=== PATIENT | female | born 1995 | race Caucasian/White ===

== ENCOUNTER 2019-10-01 05:58 | Inpatient (IN) | payer OTHER, SELFPAY ==
[2019-10-01] VITALS (61 sets, daily range): BP systolic 46–217; BP diastolic 34–181; PULSE 55–169; RESP 15–18; TEMP 36.1–37.2; O2SAT 98–100; BMI 39.5
[2019-10-01 07:03] LABS: Basophils Absolute Auto 0.1 K/mm3 (0.0-0.1); Basophils Percent Auto 0.6 % (0.2-1.2); Eosinophils Absolute Auto 0.3 K/mm3 (0-0.3); Eosinophils Percent Auto 2.4 % (0-4.4); Hematocrit 32.1 % (37.0-47.0); Hemoglobin 9.8 g/dL (12.0-15.0); Immature Granulocyte Absolute 0.07 K/mm3 (0.00-0.031); Immature Granulocyte Percent A 0.6 % (0-0.5); Lymphocytes Absolute Auto 2.63 K/mm3 (0.9-3.2); Lymphocytes Percent Auto 22.7 % (18.3-44.2); Mean Corpuscular HGB Conc 30.5 g/dl (32-36); Mean Corpuscular Hemoglobin 22.8 pg (26-34); Mean Corpuscular Volume 74.8 fl (80-100); Mean Platelet Volume 10.2 fl (7.4-10.4); Monocytes Absolute Auto 0.6 K/mm3 (0.1-0.6); Monocytes Percent Auto 5.3 % (2.6-8.5); Neutrophils Absolute Auto 7.9 K/mm3 (1.3-6.7); Neutrophils Percent Auto 68.4 % (45.5-73.1); Nucleated Red Blood Cells Perc 0.2 % (0.0-0.2); Platelet Count Result 264 k/mm3 (150-375); Red Blood Count 4.29 M/mm3 (4.2-5.4); Red Cell Distribution Width 18.1 % (11.5-14.5); White Blood Count 11.6 K/mm3 (4.5-10.0)
[2019-10-01] MEDS: LACTATED RINGERS 1,000 ML 125 ML IV CONT ×2 (07:32→10:10)
[2019-10-01] MEDS: OXYTOCIN 30 UNITS/NS 500 ML 30 UNITS/500 ML BAG IV CONT (07:36)
--- NOTE | 2019-10-01 07:59 | WPDOBADMIT ---
Obstetrics - Admit Note Admission Note: 24 y/o @ 39 weeks here for elective induction of labor. has been complicated by possible LGA. Pt had repeat glucose testing which was normal and repeat growth u/s last week showing growth in the 80%. VSS Contractions irregular FHR category 1 Cervix 3/50/-2 AROM small amount of clear odorless fluid Epidural as desired Anticipate record reviewed. No pertinent additions to the history and/or any subsequent changes in the physical findings that are not consistent with the expected course of the were found. Additions to the history and/or subsequent changes in the physical findings follow. None.
--- NOTE | 2019-10-01 08:06 | LDADM ---
This patient, Mariya Obrien, was admitted to Labor/Delivery/Recovery 105 on 10/01/19 at 05:58. Plans for labor, pain management and were discussed with patient. Patient/family oriented to hospital policies and general routines including ID bracelet, bed and alarms, visiting hours, pain management, procedures, bathroom and other care routines, personal items, smoking policy, room service/diet and guest tray routines, security routines, and visiting hours. Patient/Family are encouraged to report perceived risks to care and to ask questions if they do not understand what they are told or what they should do. See OBIX for further documentation.
--- NOTE | 2019-10-01 09:26 | WPDANESEPP ---
Anes - Eval Pre Procedure Procedure: Labor epidural Operation Date: 10/02/19 08:30 Proposed Procedures p Post- Tubal Ligation with Cautery - Anjelica White MD Date/Time: 10/01/19 09:26 Surgeon: Christopher Preop Diagnosis: Abd pain with contractions Pre Op Diagnosis: MIL Patient Data Age: 24 Gender: F Height: 5 ft 4 in Weight: 104.55 kg Last Vital Signs Temp 97.9 F 10/01/19 06:37 Pulse 76 10/01/19 09:03 BP 140/72 10/01/19 09:03 Allergies Allergy/AdvReac Type Severity Reaction Status Date / Time No Known Allergies Allergy Unverified 04/06/16 15:33 Home Medications Medication Instructions Recorded Confirmed Type No Home Medications 10/01/19 10/01/19 History Laboratory Tests 10/01/19 10/01/19 10/01/19 06:39 06:39 06:39 WBC 11.6 K/mm3 H K/mm3 (4.5-10.0) RBC 4.29 M/mm3 M/mm3 (4.2-5.4) Hgb 9.8 g/dL L g/dL (12.0-15.0) Hct 32.1 % L % (37.0-47.0) MCV 74.8 fl L fl (80-100) MCH 22.8 pg L pg (26-34) MCHC 30.5 g/dl L g/dl (32-36) RDW 18.1 % H % (11.5-14.5) Plt Count 264 k/mm3 k/mm3 (150-375) MPV 10.2 fl fl (7.4-10.4) Immature Gran % (Auto) 0.6 % H % (0-0.5) Neut % (Auto) 68.4 % % (45.5-73.1) Lymph % (Auto) 22.7 % % (18.3-44.2) [place] % (Auto) 5.3 % % (2.6-8.5) Eos % (Auto) 2.4 % % (0-4.4) Baso % (Auto) 0.6 % % (0.2-1.2) Lymph # (Auto) 2.63 K/mm3 K/mm3 (0.9-3.2) [place] # (Auto) 0.6 K/mm3 K/mm3 (0.1-0.6) Eos # (Auto) 0.3 K/mm3 K/mm3 (0-0.3) Baso # (Auto) 0.1 K/mm3 K/mm3 (0.0-0.1) Abs Immat Gran (auto) 0.07 K/mm3 H K/mm3 (0.00-0.031) Absolute Neuts (auto) 7.9 K/mm3 H K/mm3 (1.3-6.7) Absolute Nucleated RBC 0.0 K/mm3 K/mm3 (0.0-0.012) Nucleated RBC % 0.2 % % (0.0-0.2) RPR Pending Blood Type AB Positive Antibody Screen Negative Patient hx anesthesia problems: none Family hx anesthesia problems: none PMFSH Past Medical History Medical History Obesity Family History Family History Father Acute myocardial infarction Social History Social History Smoking status: Never smoker Second hand tobacco smoke exposure: Yes Substance use: unknown Spiritual care concerns: No Exam Day of Procedure 10/01/19 09:26 Patient weight: obese Airway: Mallampati scale class II Neurological: alert and oriented
[2019-10-01 10:54] LABS: Rapid Plasma Reagin Non-Reactive (NonReactive)
--- NOTE | 2019-10-01 14:04 | PM.OBPRVD ---
OB - Delivery Note Procedure Delivery date: 10/01/19 Procedure: Procedures Operation Date: 10/02/19 08:30 <No data on this case meets the specified criteria> Intrapartal events: None Induction method: per pitocin protocol Delivery monitor: external FHT and internal uterine Route of delivery: Episiotomy description: None Laceration description: None Anesthesia type: Epidural [place] Baby Date of : 10/01/19 Time of : 13:40 Weeks of gestation at delivery: 39 Weight (pounds): 8 Weight (ounces): 3 presentation: vertex position: Right Occiput Anterior Placenta delivery description: Spontaneous cord vessel description: 3 Vessels, Nuchal Cord (x2), Loose and Reduced score one minute: 8 score five minutes: 9 Narrative: Mother and baby in stable condition. Cord clamped and cut at 2 minutes. Cord gasses collected without difficulty and handed off to staff.
--- NOTE | 2019-10-01 16:17 | PC.NURSE ---
Patient transferred to post room # 292. Support person present. Oriented to unit, room, information board, rooming in, admission packet and security measures. Patient verbalizes understanding.
[2019-10-01] MEDS: DOCUSATE SODIUM 100 MG CAPSULE PO (16:44)
[2019-10-01] MEDS: POLYSACCHARIDE IRON COMPLEX 150 MG CAPSULE PO (16:44)
[2019-10-01] MEDS: ACETAMINOPHEN 325 MG TABLET 650 MG PO (16:45)
[2019-10-01] MEDS: IBUPROFEN 600 MG TABLET PO (16:45)
[2019-10-02] VITALS (11 sets, daily range): BP systolic 94–149; BP diastolic 45–89; PULSE 58–103; RESP 12–18; TEMP 36.4–37.1; O2SAT 97–100
[2019-10-02] MEDS: IBUPROFEN 600 MG TABLET PO (04:50)
[2019-10-02 07:11] LABS: Hematocrit 34.6 % (37.0-47.0); Hemoglobin 10.4 g/dL (12.0-15.0)
[2019-10-02] MEDS: LACTATED RINGERS 1,000 ML 30 ML IV CONT (07:20)
--- NOTE | 2019-10-02 07:23 | SUR.PREOP ---
Epidural catheter in place prior to coming to preop.
--- NOTE | 2019-10-02 07:37 | WPDANESEFPP ---
Anes - Eval Final PreProcedure Day of Procedure 10/02/19 07:37 Patient weight: obese Heart: regular rate and rhythm Lungs: clear to auscultation Airway: Mallampati scale class II Neurological: alert and oriented Last oral intake: >/= 8 hours ASA classification: II Emergent: no Anesthetic plan: proceed Anesthesia type and monitoring: regional epidural and standard monitoring Informed Consent: The patient's anesthetic plan and its attendant risks and benefits were discussed with the patient/family/POA. Questions were solicited and answers provided to the satisfaction of the patient/family/POA.
--- NOTE | 2019-10-02 08:47 | WPDANLDPN2 ---
Anes-Prog Note L&D Date/Time: 10/02/19 08:47 Comfortable throughout: labor and delivery Neuraxial method: epidural Epidural/Spinal procedure site: clean & non-tender Neuro status: Neuro function grossly intact. Cardiovascular status: normal Respiratory status: normal Airway patency: baseline Mental status: baseline Post-Op hydration status: normal Vital Signs: Last Vital Signs Temp 37.1 C 10/02/19 07:17 Pulse 61 10/02/19 07:17 Resp 16 10/02/19 07:17 BP 112/62 10/02/19 07:17 Pulse Ox 99 10/02/19 07:17 Post-procedural complaints: none Patient feedback: Patient satisfied with anesthetic care.
--- NOTE | 2019-10-02 08:50 | P.OP_ITS ---
Procedure Note - Detailed Date of procedure: 10/02/19 Pre-op diagnosis: MIL Unwanted fertility, term delivered Post-op diagnosis: same Procedure performed: tubal ligation Description of procedure: The patient was taken to the operating room. She was prepped and draped in the dorsal spine position. A curvilinear infraumbilical incision was made with the scalpel. The fascia superiorly inferiorly was grasped with Allis clamps. The fascia was transected Metzenbaum scissors. The preperitoneal fat was dissected bluntly the peritoneal cavity was entered bluntly. The fascial incision was extended laterally with Metzenbaum scissors. The fallopian tubes was palpated and dressed. It was brought to the abdominal incision. It was grasped with a Baylis clamp. This was in the ampullary regio n and a window was made in the broad ligament with cautery. The proximal distal ends of the skeletonized tube were ligated with Vicryl. Segment of ligated tube was resected with Metzenbaum scissors. The proximal distal ends of the tube were cauterized. When the tube was hemostatic that was lab to fall back into the abdomen. The tube on the contralateral side was ligated in identical fashion. The fascia was closed with an 0 Vicryl running fashion. Subcutaneous tissue was irrigated. Blood. The cauterized. Skin was closed subcuticular 4 Monocryl. It was covered with Dermabond. Sponge lap and needle counts were correct. The patient was taken the recovery room stable condition. Anesthesia: GETA Surgeon: Anjelica White MD Estimated blood loss (mL): 2 Drains: No Packing: No Pathology: yes Complications: No immediate complications Condition: stable Disposition: floor Findings: Normal appearing maternal anatomy
[2019-10-02] MEDS: ACETAMINOPHEN 325 MG TABLET 650 MG PO (09:42)
--- NOTE | 2019-10-02 09:45 | PC.NURSE ---
She from post op called to give report on pt. Pt did receive some IV sedation medication, no pain meds and is able to move lower extremities. Pts vitals at time of report were : hr 58, 107/56. I site below belly button is sealed with glue.
--- NOTE | 2019-10-03 07:15 | PC.NURSE ---
PT introductions made and plan of care discussed per post , post op BTL , pain managemetn, bottle feeding, daily care activities and pending discharge to home. PT verbalized understanding of such care.
[2019-10-03] MEDS: SIMETHICONE 80 MG TAB.CHEW PO (07:19)
[2019-10-03] MEDS: DOCUSATE SODIUM 100 MG CAPSULE PO (07:19)
[2019-10-03 07:40] VITALS: BP 141/85; PULSE 74; RESP 18; TEMP 37.2; O2SAT 99
--- NOTE | 2019-10-03 07:41 | PM.OBPNVD ---
OB - PN: Subj Subjective Date/time seen: 10/03/19 07:41 OB - PN: Obj Data Labs CBC & Chem 7: 10/02/19 05:16 OB - PN A/P Plan day: 2 Plan: discharge home Time Spent With Patient Time: Total time spent is greater than 50% in coordination of care (as documented) at patient's floor/unit and/or counseling patient: Review of Systems Review of Systems: All systems reviewed & are unremarkable except as noted in HPI and below Constitutional: Constitutional: Reports as per HPI Exam Const: General: comfortable Resp: Effort & Inspection: normal respiratory effort Psych: Appearance: grossly normal Affect: normal affect Attitude: cooperative Judgement: Good judgement present (Psych)
[2019-10-03] MEDS: IBUPROFEN 600 MG TABLET PO (11:31)
[2019-10-03 12:16] VITALS: PULSE 74; RESP 18; O2SAT 99
--- NOTE | 2019-10-03 12:30 | PC.NURSE ---
PT received discharge instructions per protocol and verbalized understanding of such care.
--- NOTE | 2019-10-03 13:50 | PC.NURSE ---
PT discharged to home ambulatory to waiting car accompanied by and fob, follow up appts confirmed
--- NOTE | 2019-10-31 09:58 | PM.IMHP ---
H&P: HPI History of Present Illness Chief complaint: MIL Narrative: Mariya Obrien is a 24 year old female who is in the state. She is 1 day and has unwanted fertility. We have agreed to perform tubal ligation. She understands the risk. She denies any nausea, vomiting, fever, chills patient has a chest pain shortness of breath. I explained the procedure to the patient in detail. She understands risk of injury. Since in the injuries could result in hospitalization, more surgery, and severe illness. Review of Systems Constitutional: Constitutional: Reports no additional constitutional complaints, Denies fatigue, Denies headache(s), Denies lethargy and Denies weakness Eyes: Eyes: Reports no additional eye complaints, Denies blurry vision and Denies photophobia ENT: Reports as per HPI, Denies headache(s) and Denies neck pain Cardiovascular: Cardiovascular: Denies chest pain, Denies diaphoresis, Denies leg edema, Denies palpitations and Denies dyspnea Respiratory: Respiratory: Denies hemoptysis, Denies dyspnea and Denies wheezing Gastrointestinal: Gastrointestinal: Denies abdominal pain, Denies melena, Denies bloating, Denies hematochezia, Denies nausea and Denies vomiting Genitourinary: Genitourinary: Reports no additional female genitourinary complaints Musculoskeletal: Musculoskeletal: Denies joint swelling, Denies neck pain, Denies numbness and Denies stiffness Neurologic: Denies Abnormal speech present, Denies confusion, Denies headache(s), Denies numbness and Denies weakness Psychiatric: Psychiatric: Denies anxiety, Denies confusion, Denies depression, Denies homicidal ideation and Denies suicidal ideation Endocrine: Endocrine: Denies fatigue and Denies palpitations Allergic/Immunologic: Allergic/Immunologic: Denies wheezing PMFSH Past Medical History Medical History Obesity Family History Family History Father Acute myocardial infarction Social History Social History Smoking status: Never smoker Second hand tobacco smoke exposure: Yes Substance use: unknown Spiritual care concerns: No Meds Home Medications and Allergies Home Medications Medication Instructions Recorded Confirmed Type No Home Medications 10/01/19 10/01/19 History hydrocodone-acetaminophen 1 tab PO Q4H PRN #10 tablet 10/03/19 Rx Allergies Allergy/AdvReac Type Severity Reaction Status Date / Time No Known Allergies Allergy Unverified 04/06/16 15:33 Exam Const: General: healthy appearing, comfortable and no acute distress; No confusion Orientation/consciousness: No confusion Eyes: Direct Ophthalmoscopy: No photophobia Resp: Auscultation: clear to auscultation bilaterally, no rales, no rhonchi and no wheezes Cardio: Rate: regular rate Heart sounds: no click, no murmurs and no rubs GI: Inspection: non-distended GI Palp: No abdominal tenderness Auscultation: normal bowel sounds Neuro: General: No confusion Speech: No Abnormal speech present Extrem: General: normal to inspection, no pedal edema and no calf tenderness Assessment and Plan Assessment and plan (1) Unwanted fertility: Code(s): Z30.09 - Encounter for other general counseling and advice on contraception Status: Acute (2) Term delivered: Code(s): O80 - Encounter for full-term uncomplicated delivery Status: Acute Assessment and Plan: This patient is a 24 who has unwanted fertility and is . We have agreed to perform tubal ligation. She understands risks, benefits, and alternatives. She has completed the informed consent process injury to proceed.
--- NOTE | 2019-10-31 10:00 | PM.OBDSVD ---
DS: Admitting Diagnosis Admitting Diagnosis Admitting Diagnosis: Encounter for supervision of normal , unspecified, third trimester DS: Discharge Diagnosis Discharge Diagnosis (1) Term delivered: Code(s): O80 - Encounter for full-term uncomplicated delivery Status: Acute (2) Unwanted fertility: Code(s): Z30.09 - Encounter for other general counseling and advice on contraception Status: Acute OB - DS: Summary OB Procedures : None OB Procedures Intrapartum: Spontaneous Vag Delivery OB Procedures: : P.P. tubal ligation Peripartum Data Infant Delivery Method: Natural Vaginal Procedures: Procedures Operation Date: 10/02/19 08:30 Actual Procedures Side Surgeon p Post- Tubal Ligation with Cautery Bilateral Anjelica White MD Status at Discharge Functional status at discharge: independent ambulation Time Spent with Patient Time attestation: Total time spent providing and/or coordinating discharge services: DS: Data Data Completed and Pending Completed studies during hospitalization: Pending at discharge 10/02/19 08:30 Surgical [PTH] Routine Discharge Plan Discharge Attending physician on discharge: Anjelica White Consulting providers: Florecita Fulton ; Hilda Glass ; Zhang Whitaker Discharging Clinician: Hilda Glass Patient Disposition: Home, Self-Care Activity: pelvic rest Diet: regular Discharge Instructions: Education: Mom and Baby Guide Given to: Mother Follow-Up: Call your delivering provider's office for an appointment to be seen in: 1 Week Mom [facility]up appointment. Appointment Date/Time: October 04, 2019 at 10:00 am What to expect at your follow-up visit: Blood Pressure Check Call [phone] if you are unable to keep your appointment time. BREAST CARE: 1. Wear a snug supportive bra. 2. For engorgement discomfort: Bottle Feeding: A. May apply ice packs ABDOMINAL INCISION: (if applicable) 1. Allow incision to air dry 2. Do NOT use lotions for powders on your incision 3. When showering, allow soap and water to run over the incision, but do not wash incision PERINEAL CARE: 1. Until bleeding stops, use your violetta bottle after urinating 2. Change your pad frequently throughout the day 3. You may take sitz baths several times a day (fill your bathtub with warm water and soak for 20 minutes.) Do NOT bathe in the water 4. No tub baths until seen by your physician - You may shower ACTIVITY: 1. Rest as much as possible. 2. Do not exercise or lift anything heavier than your baby (such as laundry or other children.) 3. Avoid stairs or driving as much as possible. 4. Do not put anything into the vagina. No douching, tampons, or sexual activity until seen by physician. NOTIFY PHYSICIAN IF YOU HAVE ANY QUESTIONS OR IF ANY OF THE FOLLOWING SYMPTOMS OCCUR: 1. If your perineum becomes red, swollen, or more painful than what you have experienced in the hospital. 2. If your vaginal bleeding becomes foul smelling. 3. If your vaginal bleeding becomes more heavy than a period or if your bleeding changes from pink to bright red. However, you may pass an occasional walnut-sized clot once or twice for the first week . 4. If you experience a sharp, shooting pain in you calves. 5. If you discover a hard, reddened area on your breast or if you experience flu-like symptoms. DIET: 1. Eat regular, well-balanced meals. 2. Drink plenty of fluids daily. If , drink to thirst. Patient Instructions: Antibiotic Form Stand Alone Forms: General Discharge Information Follow-up/Referrals: Anjelica White MD [Physician] - 1 Week Discharge Medications: New hydrocodone-acetaminophen 5-325 mg Tablet 1 tab PO Q4H PRN (Reason: Pain Rated 4-6) Qty: 10 RF: 0 No Action No Home Medications
== END 2019-10-03 13:50 | disposition home or self-care (01) | DRG 541 ==
LOC: ANHLDR 08:06 → ANHOB2 16:23
PROVIDERS: Advanced Practice Midwife; Admitting Provider Obstetrics & Gynecology; Visit Provider Obstetrics & Gynecology
PROC: 0UB70ZZ Excision of Bilateral Fallopian Tubes, Open Approach (ICD-10-PCS; CPT 58605; principal; 2019-10-02 08:30)
DX: O69.89X0 Labor and delivery complicated by other cord complications, not applicable or unspecified (principal); Z3A.39 39 weeks gestation of pregnancy; Z37.0 Single live birth; E66.9 Obesity, unspecified; O99.214 Obesity complicating childbirth; Z30.2 Encounter for sterilization
CPT/HCPCS: 36415; 85014; 85018; 85025; 86592; 86850; 86900; 86901; 88302; A9270; J2001; J2250; J2590; J2704; J2795; J3010; J7120